=== PATIENT | female | born 1980 | race Caucasian/White ===

== ENCOUNTER 2018-07-20 13:00 | Emergency (ER) | payer OTHER ==
[~2018-07-20] VITALS: Ht 165.1 cm; Wt 70.3 kg
[~2018-07-20 13:00] MED LIST: AMLODIPINE BESYL5 MG PO; LABETALOL HCL100 MG PO
== END 2018-07-20 18:45 | disposition home or self-care (01) ==
LOC: ER 13:00
DX: I16.0 Hypertensive urgency (principal); I10 Essential (primary) hypertension